=== PATIENT | male | born 1960 ===

== ENCOUNTER 2016-09-25 19:16 | Emergency (ER) | payer BC ==
[2016-09-25 19:50] LABS: EOSINOPHILS 3.8 % (0.0-6.0); EOSINOPHILS# 0.2 X 10^3uL (0.0-0.4); LYMPHOCYTES# 0.9 X 10^3uL (0.8-3.8); MONOCYTES# 0.6 X 10^3uL (0.2-1.0); NEUTROPHILS# 2.8 X 10^3uL (2.6-6.7); WHITE BLOOD COUNT 4.5 X 10^3uL (3.9-10.7)
[2016-09-25 19:53] LABS: BASOPHILS 0.7 % (0.0-2.0); HEMATOCRIT 43.2 % (42.0-54.0); HEMOGLOBIN 14.8 g/dL (14.0-18.0); LYMPHOCYTES 19.5 % (20.0-40.0); MEAN CELL VOLUME 112.3 fL (80.0-100.0); MEAN CORPUS. HGB CONCENTRATION 34.2 g/dL (32.0-36.0); MEAN CORPUSCULAR HEMOGLOBIN 38.4 pg (29.0-35.0); MEAN PLATELET VOLUME 9.1 fL (7.4-10.4); MONOCYTES 13.8 % (2.0-10.0); NEUTROPHILS 62.2 % (54.0-75.0); PLATELET COUNT 108 X 10^3uL (130-440); RED BLOOD COUNT 3.85 X 10^6uL (4.20-6.10); RED CELL DISTRIBUTION WIDTH 14.4 % (11.5-14.5)
[2016-09-25 19:56] LABS: ALBUMIN 3.4 g/dL (3.5-5.0); ALKALINE PHOSPHATASE 254 U/L (38-126); ALT 45 U/L (21-72); AST 87 U/L (17-59); BILIRUBIN, DIRECT 2.1 mg/dL (0.0-0.4); BLOOD UREA NITROGEN 14 mg/dL (9-20); CALCIUM 9.4 mg/dL (8.4-10.2); CHLORIDE 103 mmol/L (98-107); CREATININE 1.1 mg/dL (0.7-1.3); EST GLOMERULAR FILTRATION RATE > 60 mL/min; POTASSIUM 3.9 mmol/L (3.5-5.1); SODIUM 140 mmol/L (137-145); TOTAL PROTEIN 7.6 g/dL (6.3-8.2)
[2016-09-25 19:58] LABS: ETHYL ALCOHOL < 10 mg/dL (<10); LIPASE < 10 U/L (23-300)
[2016-09-25 19:59] LABS: GLUCOSE 264 mg/dL (70-100)
[2016-09-25] MEDS ORDERED: LACTULOSE 20 GM/30 ML UDC ONE (20:23)
--- NOTE | 2016-09-25 21:23 | ER NURSING DOCUMENTATION ---
Nurse's Notes [facility] Name:Afshin Sorto Age:56 yrs Sex:Male :1960 Arrival Date:09/25/2016 Time:19:16 Bed4 Private MD: Diagnosis:Hepatic Encephalopathy Presentation: 09/25 19:28 Presenting complaint: states: confusion, short of breath today. from [place] lb yesterday. hx cirrhosis. Notified ED Physician of Dr. Navarrete notified. 19:28 Acuity: PAMELLA 2 lb 19:33 Transition of care: patient was not received from another setting of care. lb 19:33 Method Of Arrival: Walk In Triage Assessment: 19:41 General: Appears distressed, Behavior is flat. Pain: Denies pain. Neuro: Level of lb Consciousness is confused, Oriented to person, Securities Supervisor are equal bilaterally Weakness Gait is unsteady, Speech is normal. Respiratory: Reports shortness of breath since today Onset: The symptoms/episode began/occurred gradually, the patient has mild shortness of breath. Historical: - Allergies: tylenol; Zithromax Z-Gt; - Home Meds: 1. Mirapex Oral 2. Vimpat oral 3. Prevacid Oral 4. Xifaxan oral 5. Lactulose Oral - PMHx: Seizures; CIRRHOSIS; Diabetes - NIDDM; - PSHx: Cholecysectomy; - Tetanus: < 10 years. - Ebola Screening: : Patient denies exposure to infectious person. Patient denies travel to an Ebola-affected area in the 21 days before illness onset. . - Immunization history: Flu Vaccine < 1 year Unable to Obtain. - Social history: Smoking status: Patient states was never smoker of tobacco. Patient/guardian denies using alcohol. Screenin:45 Infectious Disease Risk None. Abuse screen: Denies threats or abuse. Denies injuries lb from another. Nutritional screening: No deficits noted. Assessment: 19:44 See Triage Assessment done by same RN. Respiratory: Airway is patent Trachea midline lb Respiratory effort is even, unlabored, Breath sounds are clear bilaterally. 21:21 Cardiovascular: Rhythm is sinus rhythm. lb Vital Signs: 19:43 BP 133 / 98; Pulse 87; Resp 20; Temp 97(TE); Pulse Ox 98% on R/A; Weight 65.77 kg; lb Height 5 ft. 5 in. (165.10 cm); Pain 0/10; 20:18 BP 148 / 88; Pulse 91; Resp 22; Pulse Ox 99% on R/A; lb 21:17 BP 132 / 84; Pulse 88; Resp 18; Pulse Ox 98% on R/A; Pain 0/10; lb 19:43 Body Mass Index 24.13 (65.77 kg, 165.10 cm) lb ED Course: 19:20 Patient arrived in ED. ma1 19:28 Sussy Herron is Primary Nurse. lb 19:32 Triage completed. lb 19:40 Asad Navarrete MD is Attending Physician. sc 19:45 Valuables Remains with patient Patient has correct armband on for positive lb identification. Placed in gown. Bed in low position. Call light in reach. Side rails up X2. Adult w/ patient. 19:45 Inserted peripheral IV: 20 gauge in right antecubital area and blood collected. lb 20:52 Port Xray Completed. dnn 20:52 CHEST; [place] [id number] In Process Unspecified. EDMS Administered Medications: 20:18 Drug: Lactulose Liquid 45 ml; Route: PO; lb 20:31 Follow up: Response: No adverse reaction lb Point of Care Testing: Blood Glucose: 19:43 Blood Glucose: 263 mg/dL; lb Ranges: Outcome: 20:28 ER care complete, transfer ordered by . mt 21:17 Transferred: Patient will be transferred to: . Facility lb Acceptance Time: September 25, 2016 at 20:30 Patient's face sheet was faxed to accepting facility. Face Sheet included patient's name, address, age, gender, contact information and insurance information. Patient will be transported by: [facility] [place] [facility] ground. Report called to: Jacquie RN Nurse and Physician Charting and Notes were sent to Accepting Facility. All tests and/or procedures with results, if applicable, were sent to accepting facility. 21:17 Condition: unchanged 21:17 Discharge Assessment: Patient confused, Oriented to person. 21:17 Instructed on need for transfer 21:22 Patient left the ED. lb Signatures: Dispatcher [employer] EDMS Asad Navarrete MD MD sc Norman, David dnn Bollock, Lynda Daphne Lewis [facility]
--- NOTE | 2016-09-25 21:23 | ER PHYSICIAN DOCUMENTATION ---
Physician Documentation [facility] Name:Afshin Sorto Age:56 yrs Sex:Male :1960 Arrival Date:09/25/2016 Time:19:16 Bed4 Private MD: Asad Jerome Disposition: 09/25 20:22 Critical Care: not applicable. sc Disposition: 09/25/16 20:[address] [facility]. Diagnosis is Hepatic Encephalopathy. - Reason for transfer: Higher level of care. - Accepting physician is Dr. Rizzo. - Condition is Serious. - Problem is an acute exacerbation. - Symptoms are unchanged. COBRA Form completed? Yes Transfer - Mode of Transportation Ambulance HPI: 20:16 This 56 yrs old Unknown Male presents to ER via Walk In with complaints of confusion. sc 20:16 The patient presents with confusion, disorientation, to person, to place, to time. sc Onset: The symptom(s)/episode began/occurred today. Possible causes: alcohol, has apparently stopped drinking, for 30 day(s), low blood sugar, the patient uses insulin, hepatic encephalopathy. Associated signs and symptoms: Pertinent positives: ataxia, confusion, Pertinent negatives: shortness of breath. Current symptoms: In the emergency department the patient's symptoms are unchanged from the initial presentation. Patient's baseline: Neuro: alert and fully oriented. The patient has experienced similar episodes in the past, a few times. 20:41 incontinent of urine and stool 10x today. Frequent throat clearing and forced cough sc intermittently.. Historical: - Allergies: tylenol; Zithromax Z-Gt; - Home Meds: 1. Mirapex Oral 2. Vimpat oral 3. Prevacid Oral 4. Xifaxan oral 5. Lactulose Oral - PMHx: Seizures; CIRRHOSIS; Diabetes - NIDDM; - PSHx: Cholecysectomy; - Tetanus: < 10 years. - Ebola Screening: : Patient denies exposure to infectious person. Patient denies travel to an Ebola-affected area in the 21 days before illness onset. . - Immunization history: Flu Vaccine < 1 year Unable to Obtain. - Social history: Smoking status: Patient states was never smoker of tobacco. Patient/guardian denies using alcohol. ROS: 20:19 Eyes: Negative for injury, pain, redness, and discharge. sc ENT: Negative for injury, pain, and discharge. Neck: Negative for injury, pain, and swelling. Cardiovascular: Negative for chest pain, palpitations, and edema. Respiratory: Negative for shortness of breath, cough, wheezing, and pleuritic chest pain. Abdomen/GI: Negative for abdominal pain, nausea, vomiting, diarrhea, and constipation. Back: Negative for injury and pain. MS/Extremity: Negative for injury and deformity. 20:19 Skin: Negative for injury, rash, and discoloration. sc 20:19 Constitutional: Positive for 20:19 Constitutional: Negative for fever, poor PO intake. 20:19 Neuro: Positive for altered mental status, gait disturbance, tremor. Exam: Head/Face: Normocephalic, atraumatic. Eyes: Pupils equal round and reactive to light, extra-ocular motions intact. Lids and lashes normal. Conjunctiva and sclera are non-icteric and not injected. Cornea within normal limits. Periorbital areas with no swelling, redness, or edema. ENT: Nares patent. No nasal discharge, no septal abnormalities noted. Tympanic membranes are normal and external auditory canals are clear. Oropharynx with no redness, swelling, or masses, exudates, or evidence of obstruction, uvula midline. Mucous membranes moist. Neck: Trachea midline, no thyromegaly or masses palpated, and no cervical lymphadenopathy. Supple, full range of motion without nuchal rigidity, or vertebral point tenderness. No meningismus. Chest/axilla: Normal chest wall appearance and motion. Nontender with no deformity. No lesions are appreciated. Cardiovascular: Regular rate and rhythm with a normal S1 and S2. No gallops, murmurs, or rubs. Normal PMI, no JVD. No pulse deficits. Respiratory: Lungs have equal breath sounds bilaterally, clear to auscultation and percussion. No rales, rhonchi or wheezes noted. No increased work of breathing, no retractions or nasal flaring. Abdomen/GI: Soft, non-tender, with normal bowel sounds. No distension or tympany. No guarding or rebound. No evidence of tenderness throughout. Back: No spinal tenderness. No costovertebral tenderness. Full range of motion. 20:19 Skin: Warm, dry with normal turgor. Normal color with no rashes, no lesions, and no fl evidence of cellulitis. 20:19 Constitutional: The patient appears in no acute distress, lethargic. 20:19 Neuro: Orientation: Not oriented to person, place, time, situation, Mentation: slow to respond, confused, Memory: unable to test, Cranial nerves: CN II- XII are normal as tested, Cerebellar function: unable to test, asterixis. Vital Signs: 19:43 BP 133 / 98; Pulse 87; Resp 20; Temp 97(TE); Pulse Ox 98% on R/A; Weight 65.77 kg; lb Height 5 ft. 5 in. (165.10 cm); Pain 0/10; 20:18 BP 148 / 88; Pulse 91; Resp 22; Pulse Ox 99% on R/A; lb 21:17 BP 132 / 84; Pulse 88; Resp 18; Pulse Ox 98% on R/A; Pain 0/10; lb 19:43 Body Mass Index 24.13 (65.77 kg, 165.10 cm) lb MDM: 19:49 Patient medically screened. fl 20:20 Differential Diagnosis: electrolyte abnormality, hypoglycemia, volume depletion, sc recurrent hepatic encephalopathy. Data reviewed: vital signs, nurses notes, lab test result(s), and as a result, I will *Transfer Patient continue to observe the patient. Counseling: I had a detailed discussion with the patient and/or guardian regarding: the historical points, exam findings, and any diagnostic results supporting the discharge/admit diagnosis, lab results, the need to transfer to another facility. Physician consultation: [facility] Hospitalist was called at 20:21, was contacted at 20:22, regarding patient's condition. 09/25 19:54 Order name: CBC AUTO DIF, MDIF/RMOR IF IND; Complete Time: 20:10 EDNE 09/25 19:57 Interpretation: Normal Except: MEAN CELL VOLUME 112.3. fl 09/25 19:59 Order name: AMMONIA LEVEL; Complete Time: 20:05 EDMS 09/25 20:05 Interpretation: Abnormal: AMMONIA LEVEL 108. fl 09/25 20:00 Order name: BASIC METABOLIC PANEL; Complete Time: 20:05 EDMS 09/25 20:05 Interpretation: Normal Except: GLUCOSE 264. fl 09/25 20:00 Order name: HEPATIC PANEL; Complete Time: 20:05 EDMS 09/25 20:05 Interpretation: Abnormal: ALKALINE PHOSPHATASE 254; AST 87; BILIRUBIN, TOTAL 4.0; fl BILIRUBIN, DIRECT 2.1. 09/25 20:00 Order name: LIPASE; Complete Time: 20:05 EDNE 09/25 20:05 Interpretation: Abnormal. fl 09/25 20:00 Order name: ETHYL ALCOHOL; Complete Time: 20:05 EDMS 09/25 20:05 Interpretation: Normal. fl 09/25 20:52 Order name: CHEST; [place] [id number] EDNE 09/25 21:26 Order name: CHEST; [place] [id number] EDNE 09/25 19:33 Order name: Iv Saline Lock; Complete Time: 19:46 lb Dispensed Medications: 20:18 Drug: Lactulose Liquid 45 ml; Route: PO; lb 20:31 Follow up: Response: No adverse reaction lb Point of Care Testing: Blood Glucose: 19:43 Blood Glucose: 263 mg/dL; lb Ranges: Critical Glucose Levels:Adult <50 mg/dl or >400 mg/dl <40 mg/dl or >180 mg/dl Signatures: Asad Navarrete MD MD sc Bollock, Lynda lb
--- NOTE | 2016-09-25 21:24 | RADIOLOGY REPORT ---
HISTORY: Shortness of breath. COMPARISON: None available. FINDINGS: 1 view of the chest obtained. Low lung volumes. Heart size upper limits of normal. Grossly normal ce ntral pulmonary vessels and mediastinal contour. No focal infiltrates. No pleural effusion. No pneumothorax. IMPRESSION: Low lung volumes. No evidence for active cardiopulmonary disease. Final Electronic Signature: This report was electronically signed by Irvin Braun MD, FACR on 9:21 PM. quintin /
== END 2016-09-25 21:22 | disposition short-term general hospital (02) ==
LOC: ER 19:16 → EDBD 19:16 → ER 21:22
DX: K72.91 Hepatic failure, unspecified with coma (principal); K71.3 Toxic liver disease with chronic persistent hepatitis; R06.02 Shortness of breath; E11.65 Type 2 diabetes mellitus with hyperglycemia; R05 Cough; Z79.899 Other long term (current) drug therapy
CPT/HCPCS: 71010; 80048; 80076; 80320; 82140; 83690; 85025; 99285; A0425; A0429